=== PATIENT | female | born 1970 | race Hispanic/Latino ===

== ENCOUNTER 2020-09-28 14:27 | Emergency (ER) | payer SELFPAY ==
[~2020-09-28] VITALS: Ht 139.7 cm; Wt 43.1 kg
[2020-09-28] MEDS ORDERED: PREDNISONE10 MG PO (15:07)
== END 2020-09-28 15:35 | disposition home or self-care (01) ==
LOC: ER 15:00
DX: M79.642 Pain in left hand (principal); M79.641 Pain in right hand; M06.9 Rheumatoid arthritis, unspecified
CPT/HCPCS: 99282